=== PATIENT | male | born 1955 | race Caucasian/White ===

== ENCOUNTER 2022-08-09 05:01 | Outpatient (CLI) | payer OTHER, SELFPAY | END 2022-08-09 05:02 | disposition home or self-care (01) | LOC: AMB 09-11 11:25 | PROVIDERS: Visit Provider Internal Medicine | DX: R41.82 Altered mental status, unspecified (principal) | CPT/HCPCS: A0425; A0427 ==

== ENCOUNTER 2022-08-16 14:40 | Outpatient (CLI) | payer OTHER, SELFPAY | END 2022-08-16 14:41 | disposition home or self-care (01) | LOC: AMB 09-12 01:54 | PROVIDERS: Visit Provider Family Medicine | DX: R41.82 Altered mental status, unspecified (principal) | CPT/HCPCS: A0425; A0427 ==